=== PATIENT | female | born 1990 | race Caucasian/White ===

== ENCOUNTER 2019-01-18 10:39 | Emergency (ER) | payer MEDICAID ==
[2019-01-18] MEDS: ONDANSETRON (ODT) 4 MG TAB ODT (11:44)
[2019-01-18 11:47] LABS: URINE PH (Dip) POC 5.5 (5.0-8.5)
[2019-01-18 11:47] LABS: URINE BLOOD (Dip) POC Negative (NEGATIVE); URINE GLUCOSE (Dip) POC Negative (NEGATIVE); URINE KETONES (Dip) POC Negative (NEGATIVE); URINE LEUKOCYTE EST (Dip) POC Negative (NEGATIVE); URINE NITRITE (Dip) POC Negative (NEGATIVE); URINE TOTAL PROTEIN POC Trace (NEGATIVE)
== END 2019-01-18 12:10 | disposition home or self-care (01) ==
LOC: FTE 10:39
DX: E78.2 Mixed hyperlipidemia (principal); F41.9 Anxiety disorder, unspecified
CPT/HCPCS: 81003; 81025; 99283